=== PATIENT | male | born 1985 | race African-American/Black ===

== ENCOUNTER 2018-10-22 10:08 | Emergency (ER) | payer SELFPAY ==
[~2018-10-22] VITALS: Ht 175.3 cm; Wt 82.0 kg
[~2018-10-22 10:08] MED LIST: NO HOME MEDS
[2018-10-22] MEDS ORDERED: LAMISIL AT1 % EX (10:46)
[2018-10-22 11:04] VITALS: BP 124/88
== END 2018-10-22 11:04 | disposition home or self-care (01) | DRG 607 ==
LOC: ED 10:08
DX: B35.3 Tinea pedis (principal); M79.672 Pain in left foot; M79.671 Pain in right foot

== ENCOUNTER 2018-12-23 05:57 | Emergency (ER) | payer OTHER ==
[~2018-12-23] VITALS: Ht 175.3 cm; Wt 84.4 kg
[~2018-12-23 05:57] MED LIST changes: +LAMISIL AT1 % EX
[2018-12-23] MEDS ORDERED: TORADOL PO (07:09)
[2018-12-23] MEDS ORDERED: ZITHROMAX250 MG PO (07:09)
[2018-12-23] MEDS ORDERED: ONDANSETRON4 MG PO (07:09)
[2018-12-23 07:22] VITALS: BP 122/78
[2018-12-24] MEDS ORDERED: TORADOL PO (08:02)
[2018-12-24] MEDS ORDERED: ZITHROMAX250 MG PO (08:02)
[2018-12-24] MEDS ORDERED: ONDANSETRON4 MG PO (08:02)
== END 2018-12-23 07:22 | disposition home or self-care (01) ==
LOC: ED 05:57
DX: B34.9 Viral infection, unspecified (principal); J02.9 Acute pharyngitis, unspecified; F17.290 Nicotine dependence, other tobacco product, uncomplicated; R05 Cough; R52 Pain, unspecified

== ENCOUNTER 2019-04-08 05:31 | Emergency (ER) | payer BC ==
[~2019-04-08] VITALS: Ht 175.3 cm; Wt 100.0 kg
[~2019-04-08 05:31] MED LIST changes: +ONDANSETRON4 MG PO; +TORADOL PO; +ZITHROMAX250 MG PO
[2019-04-08] MEDS ORDERED: NAPROSYN500 MG PO (06:57)
[2019-04-08] MEDS ORDERED: FLEXERIL PO (06:57)
[2019-04-08 07:10] VITALS: BP 124/80
== END 2019-04-08 07:10 | disposition home or self-care (01) | DRG 563 ==
LOC: ED 05:31
DX: S43.402A Unspecified sprain of left shoulder joint, initial encounter (principal); F17.210 Nicotine dependence, cigarettes, uncomplicated; X58.XXXA Exposure to other specified factors, initial encounter

== ENCOUNTER 2019-11-04 09:30 | Emergency (ER) | payer MEDICAID ==
[~2019-11-04 09:30] MED LIST changes: +FLEXERIL PO; +NAPROSYN500 MG PO
[2019-11-04] MEDS ORDERED: EMLA CREAM5 GM/TUBE EX (10:09)
[2019-11-04 10:20] VITALS: BP 130/85
== END 2019-11-04 10:20 | disposition home or self-care (01) | DRG 395 ==
LOC: ED 09:30
DX: K64.9 Unspecified hemorrhoids (principal); F17.210 Nicotine dependence, cigarettes, uncomplicated

== ENCOUNTER 2019-12-17 14:45 | Emergency (ER) | payer MEDICAID ==
[~2019-12-17 14:45] MED LIST changes: +EMLA CREAM5 GM/TUBE EX
[2019-12-17] MEDS ORDERED: ANUCORT-HC25 M1 RE (18:01)
[2019-12-17 18:05] VITALS: BP 133/73
== END 2019-12-17 18:05 | disposition home or self-care (01) ==
LOC: ED 14:45
DX: K64.4 Residual hemorrhoidal skin tags (principal); F17.200 Nicotine dependence, unspecified, uncomplicated

== ENCOUNTER 2022-07-19 14:10 | Emergency (ER) | payer OTHER, MEDICAID ==
[~2022-07-19] VITALS: Ht 175.3 cm; Wt 85.0 kg
[~2022-07-19 14:10] MED LIST changes: +ANUCORT-HC25 M1 RE
[2022-07-19 14:29] VITALS: BP 128/74
[2022-07-19 14:30] VITALS: BP 123/79
[2022-07-19 14:45] VITALS: BP 125/73
[2022-07-19] MEDS ORDERED: NAPROXEN500 MG PO (15:38)
[2022-07-19] MEDS ORDERED: FLEXERIL5 M1 PO (15:38)
[2022-07-19 15:41] VITALS: BP 125/73
== END 2022-07-19 16:29 | disposition home or self-care (01) | DRG 552 ==
LOC: ED 14:10
DX: S33.5XXA Sprain of ligaments of lumbar spine, initial encounter (principal); V48.0XXA Car driver injured in noncollision transport accident in nontraffic accident, initial encounter

== ENCOUNTER 2023-01-16 07:57 | Emergency (ER) | payer OTHER ==
[~2023-01-16] VITALS: Ht 175.3 cm; Wt 86.1 kg
[~2023-01-16 07:57] MED LIST changes: +FLEXERIL5 M1 PO; +NAPROXEN500 MG PO
[2023-01-16 08:04] VITALS: BP 112/79
[2023-01-16 08:10] VITALS: BP 112/75
[2023-01-16 08:16] VITALS: BP 107/65
[2023-01-16] MEDS ORDERED: CLINDAMYCIN300 M1 PO (08:30)
== END 2023-01-16 08:41 | disposition home or self-care (01) ==
LOC: ED 07:57
DX: K08.89 Other specified disorders of teeth and supporting structures (principal); F17.200 Nicotine dependence, unspecified, uncomplicated